=== PATIENT | male | born 1960 ===

== ENCOUNTER 2017-11-09 08:45 | Day surgery (SDC) | payer OTHER ==
[2017-11-09 09:31] VITALS: BMI 24.4
[2017-11-09 09:43] VITALS: O2SAT 100
[2017-11-09] MEDS ORDERED: Lactated Ringer's 1,000 ML IV ONE (11:50)
--- NOTE | 2017-11-09 11:52 | CP.SDSHP ---
Same Day Surgery H & P - History Proposed Procedure: COLONSCOPY Pre-Op Diagnosis: SEE NOTES - Previous Medical/Surgical History Endocrine/Metabolic: Diabetes Misc: Other Pain: 4.Moderate Pain - Allergies Allergies: Allergies No Known Allergies Allergy (Verified 11/09/17 09:31) - Physical Exam General Appearance: N Vital Signs: Vital Signs 11/09/17 09:33 Temperature 97.3 F L Pulse Rate 54 L Respiratory 19 Rate Blood Pressure 135/65 O2 Sat by Pulse 100 Oximetry Mental Status: Alert & Oriented x3 Neuro: WNL Heart: WNL Lungs: WNL GI: Other - {Optional Preform as Required} Breast: WNL Abdomen: Other Rectal: Other Integument: WNL : WNL Ortho: WNL ENT: WNL - Impression Pt. Evaluated Today:Candidate for Anesthesia & Procedure: Yes - Date & Time Time: 11:52 Short Stay Discharge - Short Stay Discharge Admitting Diagnosis/Reason for Visit: ANEMIA Disposition: HOME/ ROUTINE
[2017-11-09] MEDS ORDERED: Propofol 10 mg/ml Inj (20 ML) ONE (11:54)
[2017-11-09] MEDS ORDERED: Belladonna-Phenobarbital PO STA (12:21)
[2017-11-09 12:25] VITALS: TEMP 97.8
[2017-11-09 13:04] VITALS: BP 116/68; PULSE 53; RESP 18
== END 2017-11-09 13:02 | disposition home or self-care (01) ==
LOC: C.ENDO 08:45
PROVIDERS: ATTEND Specialist
DX: D12.7 Benign neoplasm of rectosigmoid junction (principal); K64.8 Other hemorrhoids; D64.9 Anemia, unspecified
CPT/HCPCS: 45380; 82948; 88305; J2704; J7120